=== PATIENT | female | born 1935 | race Caucasian/White ===

== ENCOUNTER → 2019-01-05 12:38 | Outpatient (CLI) | payer MEDICARE, OTHER, SELFPAY ==
[2018-12-05 12:49] VITALS: BMI 27.7
--- NOTE | 2019-01-05 12:40 | CT_ITS ---
STUDY: CT ABDOMEN AND PELVIS WITHOUT CONTRAST REASON FOR EXAM: Female, 83 years old. Anal carcinoma RADIATION DOSAGE (If Supplied By Facility): CTDIvol = ( 13.04 ) mGy, DLP = ( 1232.11 ) mGycm TECHNIQUE: Transaxial images were obtained from the dome of the diaphragm to the symphysis pubis without oral contrast, and without intravenous contrast. Sagittal and coronal images were reconstructed. Individualized dose optimization techniques were used for this CT. COMPARISON: December 03, 2014 FINDINGS: Minor interstitial thickening at the lung bases. The visualized portions of the heart are within normal limits. Small hiatal hernia is present. Liver is mildly enlarged and fatty infiltrated without mass or bile duct dilatation. Gallbladder has been removed surgically.. Normal spleen. Normal pancreas. Normal bilateral adrenal glands. Focal scarring of the right kidney possibly due to old inflammatory disease or trauma. No evidence for obstruction or renal mass. Normal left kidney. Normal visualized stomach. Normal small intestine. Diverticular disease of the descending and sigmoid colon without evidence for acute diverticulitis The appendix is visualized and appears normal. There is asymmetric thickening of the right posterior lateral wall of the anus narrowing the lumen consistent with clinical history of carcinoma. Vessels chronic changes of the aorta without evidence for aneurysm Normal inferior vena cava. Normal retroperitoneum. Incompletely distended thick-walled bladder likely of no significance. Normal abdominal wall. Lumbar spine demonstrates mild spondylosis. 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 No other significant change CT/Abdomen/Pelvis W IV Cont ONLY IMPRESSION: Findings consistent with known anal carcinoma No evidence for retroperitoneal adenopathy or liver metastasis. Findings as above Electronically Signed: Shai Almodovar MD at 17:02 EDT , Service support ,
--- NOTE | 2019-01-05 12:40 | CT_ITS ---
STUDY: CT CHEST WITH CONTRAST REASON FOR EXAM: Female, 83 years old. Anal carcinoma RADIATION DOSAGE (If Supplied By Facility): CTDIvol = ( 13.04 ) mGy, DLP = ( 1232.11 ) mGycm TECHNIQUE: Transaxial imaging was performed following intravenous administration of 100 IV Isovue 300. Individualized dose optimization techniques were used for this CT. COMPARISON: None. FINDINGS: There is mild generalized interstitial thickening of the intralobular septae most severe in the mid and lower lung zones. There are associated centrilobular and paraseptal emphysematous changes in the upper lobes. There is no focal infiltration or pulmonary nodule. There is no demonstrated pleural abnormality. Heart is mildly enlarged and there is minor coronary artery calcification Normal mediastinum. Normal hilar regions. Normal enhanced pulmonary arteries. Atherosclerotic changes of the aorta without evidence for aneurysm. Dorsal spine demonstrates moderate spondylosis Small hiatal hernia is present Liver is fatty infiltrated. Gallbladder has been removed surgically. CT/Chest WITH Contrast IMPRESSION: Chronic interstitial and emphysematous changes and ASHD No acute abnormalities. No evidence for pulmonary metastasis. Electronically Signed: Shai Almodovar MD at 18:32 EDT , Service support ,
== END ==
PROVIDERS: Family Provider Nurse Practitioner Primary Care; PCP Nurse Practitioner Primary Care; Referring Provider Internal Medicine Medical Oncology; Visit Provider Internal Medicine Medical Oncology
DX: C21.0 Malignant neoplasm of anus, unspecified (principal)
CPT/HCPCS: 71260; 74177; Q9967

== ENCOUNTER 2020-09-10 10:17 | Emergency (ER) | payer MEDICARE, OTHER, SELFPAY ==
[2019-01-09 10:50] VITALS: BMI 28.3
[2020-09-10 10:17] VITALS: BP 159/74; PULSE 83; RESP 17; TEMP 36.5; O2SAT 94; BMI 28.3
--- NOTE | 2020-09-10 10:47 | ED.DCSUM_ITS ---
History of Present Illness Chief Complaint: Confusion Informant: Patient, - - [employer] officer Narrative: 84-year-old female was brought to the emergency department by law enforcement. She apparently came to the hospital looking for her son stating that he was having traffic court today. She states that he was supposed to be there at 930. She tells me that she lives with him and that he had an appointment at 930. She states that she did not necessarily make arrangements to pick him up. Law enforcement tells me that this is the second time this week that she has come to the hospital to pickling tank operator her son when he is not here. She told law enforcement she does not know what kind a car she is driving but has keys in her hand. Patient denies any recent fever or illnesses. She denies any recent medication changes. No recent trauma. I spoke with her primary care provider who knows the patient. She states that this is new and she has not had concerns regarding altered mental status in the past. Please were able to get a hold of her son and he is going to come up to the hospital. He states that she was following him to court and he stopped a gas station and she turned with the wrong direction. He states that in the past 2 weeks she has had increasing confusion and forgetfulness. - Past Medical History (1) HTN (hypertension) Status: Chronic (2) History of anal cancer Status: Chronic (3) PVD (peripheral vascular disease) Status: Chronic Past Medical History - Allergies and Home Meds Allergies/Adverse Reactions: Allergies niacin [From Niaspan Extended-Release] Allergy (Intermediate, Verified 01/10/20 14:00) Unknown pimecrolimus [From Elidel] Allergy (Intermediate, Verified 01/10/20 14:00) Unknown ranitidine [From Zantac] Allergy (Intermediate, Verified 01/10/20 14:00) Unknown Sulfa (Sulfonamide Antibiotics) Allergy (Intermediate, Verified 01/10/20 14:00) Unknown alendronate sodium [From Fosamax] Adverse Reaction (Severe, Verified 01/10/20 14:00) Unknown RIDDHI Inhibitors Adverse Reaction (Intermediate, Verified 01/10/20 14:00) Unknown atorvastatin [From Lipitor] Adverse Reaction (Intermediate, Verified 01/10/20 14:00) Unknown fluvastatin [From Lescol] Adverse Reaction (Intermediate, Verified 01/10/20 14:00) Unknown hydrochlorothiazide Adverse Reaction (Intermediate, Verified 01/10/20 14:00) Unknown Primary Care Physician: Leidy Soler INSIDE SALES ACCOUNT EXECUTIVE, INSIDE SALES ACCOUNT EXECUTIVE-C [Primary Care Provider] - As soon as possible Surgical History: cholecystectomy, - - angioplast and stents LE's for PVD at [facility] Lives: With Family Smoking Status: Former smoker Alcohol: None Drugs: None Review of Systems General: Denies: Chills, Fever, Sweats Eyes: Denies: Visual changes - bilaterally, Diplopia ENT: Denies: Rhinorrhea, Sore throat Cardiovascular: Denies: Chest pain, Palpitations Respiratory: Denies: Dyspnea, Cough, Dyspnea on exertion Gastrointestinal: Denies: Abdominal pain, Nausea, Vomiting, Diarrhea, Melena, Hematochezia Genitourinary: Denies: Dysuria, Hematuria, Frequency Musculoskeletal: Denies: Back pain, Extremity Pain Skin: Denies: Rash, Wounds Neurological: Denies: Headache, Weakness, Numbness Physical Exam Vital Signs/Narrative: Vital Signs Temp Pulse Resp BP Pulse Ox 09/10/20 10:17 97.7 F L 83 17 159/74 H 94 Inital Vital Signs reviewed: Yes General: Well nourished, Well developed, No Acute Distress Head: Normocephalic, Atraumatic Eyes: Perrl, EOMI ENT: Moist mucous membranes, No rhinorrhea Neck: Supple, Nontender Cardiovascular: Regular rate, Regular rhythm, No murmurs Respiratory: No distress, CTA bilaterally, Chest nontender Abdomen: Soft, Nontender, Nondistended, Normal bowel sounds Back: Nontender, Normal Inspection Extremities: Nontender, No edema Skin: Normal color, No rash Neurological: Alert, Cranial nerves II-XII grossly intact, Normal Strength, Normal Sensation. Negative for: Oriented x3 - Patient states it is the 1900s. Psychological: Normal affect, Normal Mood Diagnostic/Tx/Re-eval Clinical Impression(s) from Imaging Studies Brain CT 09/10/20 11:06 IMPRESSION: Chronic involutional changes of the brain. Electronically Signed: Adriano Warren MD at 12:23 EDT , Service support , Chest X-Ray 09/10/20 11:07 IMPRESSION: Hyperinflation. The lungs are clear. Electronically Signed: Adriano Warren MD at 12:24 EDT , Service support , Laboratory Last Values WBC 6.6 K/mm3 (4.4-11.0) 09/10/20 11:23 RBC 5.80 M/mm3 (4.2-5.4) H 09/10/20 11:23 Hgb 15.6 g/dL (12.0-15.0) H 09/10/20 11:23 Hct 50.3 % (37-47) H 09/10/20 11:23 MCV 86.7 fL (81-99) 09/10/20 11:23 MCH 26.9 pg (27.0-32.0) L 09/10/20 11:23 MCHC 31.0 g/dL (32-36) L 09/10/20 11:23 RDW Std Deviation 41.1 fl (35.1-43.9) 09/10/20 11:23 RDW Coeff of Kade 13.0 % (11.6-14.6) 09/10/20 11:23 Plt Count 247 K/mm3 (150-450) 09/10/20 11:23 MPV 10.0 fl (6.2-12.0) 09/10/20 11:23 Immature Gran % (Auto) 0.300 % (0.0-0.9) 09/10/20 11:23 Neut % (Auto) 69.1 % (47-70) 09/10/20 11:23 Lymph % (Auto) 19.1 % (19-41) 09/10/20 11:23 Bonner % (Auto) 7.3 % (0-10) 09/10/20 11:23 Eos % (Auto) 3.6 % (0-5) 09/10/20 11:23 Baso % (Auto) 0.6 % (0-1) 09/10/20 11:23 Absolute Neuts (auto) 4.6 X10^3/uL (2.0-7.7) 09/10/20 11:23 Absolute Lymphs (auto) 1.26 X10^3/uL (0.83-4.51) 09/10/20 11:23 Nucleated RBC % 0 % (0-5) 09/10/20 11:23 Sodium 138 mmol/L (136-145) 09/10/20 11:23 Potassium 3.9 mmol/L (3.5-5.1) 09/10/20 11:23 Chloride 101 mmol/L (98-107) 09/10/20 11:23 Carbon Dioxide 29.0 mmol/L (21.0-32.0) 09/10/20 11:23 Anion Gap 8 (5-15) 09/10/20 11:23 BUN 17 mg/dL (7-18) 09/10/20 11:23 Creatinine 0.92 mg/dL (0.55-1.02) 09/10/20 11:23 Estim Creat Clear Calc 32.11 ml/min 09/10/20 11:23 Est GFR (MDRD) Af Amer 75 mL/min (>60) 09/10/20 11:23 Est GFR (MDRD) Non-Af 62 mL/min (>60) 09/10/20 11:23 BUN/Creatinine Ratio 18.5 RATIO (10-20) 09/10/20 11:23 Glucose 191 mg/dL (74-106) H 09/10/20 11:23 Calcium 9.7 mg/dL (8.5-10.1) 09/10/20 11:23 Total Bilirubin 0.40 mg/dL (0.20-1.00) 09/10/20 11:23 AST 23 U/L (15-37) 09/10/20 11:23 ALT 24 U/L (13-56) 09/10/20 11:23 Alkaline Phosphatase 93 U/L (45-117) 09/10/20 11:23 Troponin I < 0.015 ng/mL (<0.045) 09/10/20 11:23 Total Protein 8.2 g/dL (6.4-8.2) 09/10/20 11:23 Albumin 4.2 g/dL (3.2-5.0) 09/10/20 11:23 Globulin 4.0 g/dL (2.2-4.2) 09/10/20 11:23 Albumin/Globulin Ratio 1.0 RATIO (0.9-2.4) 09/10/20 11:23 Urine Color Straw (Yellow) 09/10/20 12:49 Urine Clarity Sl. Cloudy (Clear) 09/10/20 12:49 Urine pH 6.0 (5.0 - 8.0) 09/10/20 12:49 Ur Specific [place] 1.020 (1.002-1.030) 09/10/20 12:49 Urine Protein Negative mg/dl (Negative) 09/10/20 12:49 Urine Glucose (UA) Normal mg/dl (Normal) 09/10/20 12:49 Urine Ketones Negative mg/dl (Negative) 09/10/20 12:49 Urine Occult Blood 10 /ul (Negative) H 09/10/20 12:49 Urine Nitrite Negative (Negative) 09/10/20 12:49 Urine Bilirubin Negative mg/dL (Negative) 09/10/20 12:49 Urine Urobilinogen Normal mg/dl (Normal) 09/10/20 12:49 Ur Leukocyte Esterase Negative /ul (Negative) 09/10/20 12:49 Urine RBC 0 SEEN /hpf (0-5) 09/10/20 12:49 Urine WBC 0 SEEN /hpf (0-5) 09/10/20 12:49 Ur Squamous Epith Cells 0 SEEN /hpf (5-10) 09/10/20 12:49 Urine Bacteria 0 SEEN /hpf (None Seen) 09/10/20 12:49 Urine Mucus 0 SEEN /hpf (<or=2+) 09/10/20 12:49 - EKG Initial EKG Interpretation: Sinus Rhythm - EKG demonstrates a normal sinus rhythm at a rate of 75. No concerning features of ACS noted - Medical Decision Making My interpretation of the portable chest x-ray is no acute process. Medical work-up essentially negative. Noted hyperglycemia. Son and daughter here in the emergency department. They note that this is been a exchange operator the past couple weeks. When asked that the patient not drive in the family take her car keys. We will have her follow-up with her primary care doctor. Family is in agreement with this plan. ED Disposition - Plan for ED Patient: Disposition: Home or Assisted Living Diagnosis: Confusion Instructions: ED ALOC Referrals: Leidy Soler NP, INSIDE SALES ACCOUNT EXECUTIVE-C [Primary Care Provider] - As soon as possible
--- NOTE | 2020-09-10 10:56 | CM.ED ---
SOCIAL WORK Referral Source: Sid MCCAULEY and Dr. Mata Reason for Consult: Discharge Planning Case conferenced with nurse, Eulalio, PARISA Lau and Dr. Mata. Leny present. Patient presents to ER with confusion looking for son. Patient reports son is in traffic court. HRO has completed phone calls and confirmed son is currently in court and will either be calling or coming to hospital. HRO reports son with history of meth use and mental health issues. Dr. Mata to contact patient's primary care physician. Call to Adult Protective Services workerVirgil to complete report regarding concerns. Left message, awaiting call back. Plan: ZHENG Cruz, PHONE TECHNICIAN, WEBBING INSPECTOR
--- NOTE | 2020-09-10 11:06 | CT_ITS ---
STUDY: CT BRAIN WITHOUT CONTRAST REASON FOR EXAM: Female, 84 years old. Altered mental status RADIATION DOSAGE (If Supplied By Facility): CTDIvol = ( 44.99 ) mGy, DLP = ( 762.36 ) mGycm TECHNIQUE: Transaxial CT imaging of the brain was performed without administration of intravenous contrast material. Individualized dose optimization techniques were used for this CT. COMPARISON: No relevant priors. FINDINGS: Normal soft tissue structures. Normal calvarium. There is mild cerebral atrophy with widening of the extra-axial spaces and ventricular dilatation. There are areas of decreased attenuation within the white matter tracts of the supratentorial brain, consistent with microvascular disease changes. There are small punctate calcifications of the basal ganglia which are seen in the aging brain as a normal variant. Normal brainstem. Normal cerebellum. There is no intracranial hemorrhage. There are no findings of an acute ischemic infarction. Atherosclerotic calcification of the vertebral arteries and cavernous portions of the internal carotid arteries bilaterally. Normal visualized paranasal sinuses. CT/Brain/Head without Contrast IMPRESSION: Chronic involutional changes of the brain. Electronically Signed: Adriano Warren MD at 12:23 EDT , Service support ,
--- NOTE | 2020-09-10 11:06 | EKG12_ITS ---
Test Reason : Blood Pressure : / mmHG Vent. Rate : 075 BPM Atrial Rate : 075 BPM P-R Int : 170 ms QRS Dur : 070 ms QT Int : 372 ms P-R-T Axes : 074 063 073 degrees QTc Int : 415 ms Normal sinus rhythm Normal ECG Confirmed by CARLOS GUERRIER, JESSICA ([id number]), social media editor LATOYA EUBANKS ([id number]) on 09/13/2020 8:02:21 AM Referred By: FRANK Confirmed By:ANA GONZALEZ MD
--- NOTE | 2020-09-10 11:07 | RAD_ITS ---
STUDY: X-RAY CHEST REASON FOR EXAM: Female, 84 years old. Altered mental status TECHNIQUE: Single AP portable view of the chest. COMPARISON: Comparison is made with prior study dated 10/10/2013. FINDINGS: Hyperinflation. The lungs are clear. There is no demonstrated pleural abnormality. Normal size heart. Normal mediastinum and amanuel. Normal visualized pulmonary arteries. There is atherosclerotic calcification of the aortic arch with tortuosity. Normal visualized thoracic spine. Normal visualized ribs, clavicles, and shoulders. There is no demonstrated abnormality of the visualized soft tissue structures of the upper abdomen. RAD/Chest 1 View (Portable) IMPRESSION: Hyperinflation. The lungs are clear. Electronically Signed: Adriano Warren MD at 12:24 EDT , Service support ,
[2020-09-10 11:44] LABS: Absolute Lymphocyte Count 1.26 X10^3/uL (0.83-4.51); Absolute Neutrophil Count 4.6 X10^3/uL (2.0-7.7); Basophil# 0.04 X10^3/uL; Basophil% 0.6 % (0-1); Eosinophil# 0.24 X10^3/uL; Eosinophils% 3.6 % (0-5); Hematocrit 50.3 % (37-47); Hemoglobin 15.6 g/dL (12.0-15.0); Lymphocyte # 1.26 X10^3/ul (0.83-4.51); Lymphocyte % 19.1 % (19-41); Mean Corpuscular Hgb 26.9 pg (27.0-32.0); Mean Corpuscular Volume 86.7 fL (81-99); Monocyte# 0.48 X10^3/uL; Monocyte% 7.3 % (0-10); NRBC Flagged by Analyzer 0 % (0-5); Neutrophil # 4.56 X10^3/uL (2.7-7.7); Neutrophil % 69.1 % (47-70); Platelet Count 247 K/mm3 (150-450); RBC Distribution Width SD 41.1 fl (35.1-43.9); White Blood Count 6.6 K/mm3 (4.4-11.0)
--- NOTE | 2020-09-10 11:45 | CM.ED ---
SOCIAL WORK Received call from patient's daughter, Fiorella [phone]. Daughter states she was informed patient was in ER. Daughter reports family has noticed increase in confusion, which is new for patient. Daughter states lives 1 mile from patient. Patient's sons-Rivas and Amy currently reside with patient. Daughter states will be en route to hospital and plans to arrive within the next [address] Mata and nurse updated. Tom Cruz, AUDIT MACHINE OPERATOR, TINNER HELPER
[2020-09-10 12:02] LABS: AST(SGOT) 23 U/L (15-37); Alanine Aminotransfer ALT/SGPT 24 U/L (13-56); Albumin, Serum 4.2 g/dL (3.2-5.0); Alkaline Phosphatase 93 U/L (45-117); Anion Gap 8 (5-15); BUN 17 mg/dL (7-18); BUN/Creat Ratio 18.5 RATIO (10-20); Calcium,Total 9.7 mg/dL (8.5-10.1); Chloride 101 mmol/L (98-107); Creatinine, Serum 0.92 mg/dL (0.55-1.02); EST Glomerular Filtration Rate 62 mL/min (>60); Est Glom Filt Rate - Afr Amer 75 mL/min (>60); Estimated Creatinine Clearance 32.11 ml/min; Glucose 191 mg/dL (74-106); Potassium 3.9 mmol/L (3.5-5.1); Protein, Total 8.2 g/dL (6.4-8.2); Sodium Level 138 mmol/L (136-145)
[2020-09-10 12:54] LABS: Bacteria 0 SEEN /hpf (None Seen); Mucous, Urine 0 SEEN /hpf (<or=2+); Red Blood Cells-Urine 0 SEEN /hpf (0-5); Squamous Epithelial Cells - UA 0 SEEN /hpf (5-10); White Blood Cells 0 SEEN /hpf (0-5)
[2020-09-10 13:01] LABS: Color, Urine Straw (Yellow); Glucose, Dipstick Normal (Normal); Ketone-Dipstick Negative (Negative); Leukocyte Esterase-Dipstick Negative /ul (Negative); Nitrite-Dipstick Negative (Negative); Occult Blood-Urine 10 /ul (Negative); Protein-Dipstick Negative (Negative); Urine Bilirubin Dipstick Negative (Negative); Urine Clarity Sl. Cloudy (Clear); Urine Urobilinogen Normal (Normal)
--- NOTE | 2020-09-10 13:29 | CM.ED ---
SOCIAL WORK This worker along with Dr. Mata met with patient, patient's daughter-Fiorella, and son-Rivas. Dr. Mata reviewed findings from work-up and encouraged patient not to drive. Children were advised to obtain patient's keys due to concerns with patient's confusion and inability to identify her car. Children in agreement. Patient to follow up with primary care physician. Patient returning home with family at this time. Tom Cruz, RIVER CAPTAIN, MID LEVEL DEVELOPER
[2020-09-10 13:52] VITALS: BP 161/57; PULSE 74; RESP 14; O2SAT 97
== END 2020-09-10 13:54 | disposition home or self-care (01) ==
PROVIDERS: Emergency Provider Emergency Medicine; PCP Nurse Practitioner Primary Care
DX: R41.0 Disorientation, unspecified (principal); I10 Essential (primary) hypertension; I73.9 Peripheral vascular disease, unspecified; Z87.891 Personal history of nicotine dependence
CPT/HCPCS: 70450; 71045; 80053; 81001; 84484; 85025; 93005; 99283; A4216